=== PATIENT | female | born 1935 | race Two or more races ===

== ENCOUNTER 2016-09-30 17:46 | Inpatient (IN) | payer MEDICARE, MEDICAID ==
[2016-09-30 18:06] VITALS: BP 140/72
[2016-09-30 18:35] LABS: % BASOPHILS 0.6 % (0.0-2.0); % EOSINOPHILS 1.7 % (0.0-5.0); % LYMPHOCYTES 22.5 % (20.0-50.0); % MONOCYTES 7.3 % (2.0-10.0); % NEUTROPHILS 67.9 % (40.0-80.0); MEAN CELL VOLUME 84.7 fl (81-100); MEAN CORPUSCULAR HEMOGLOBIN 29.3 pg (27.0-31.0); MEAN CORPUSCULAR HGB CONC 34.6 pg (28.0-36.0); MEAN PLATELET VOLUME 7.8 fl; NEUTROPHILE ABSOLUTE 4.4 Th/cmm (1.8-8.0); PLATELET COUNT 172 Th/cmm (150-400); RED BLOOD COUNT 3.76 Mil/cmm (3.80-5.20); RED CELL DISTRIBUTION WIDTH 14.2 % (11.5-20.0)
[2016-09-30 18:38] LABS: HEMATOCRIT 31.9 % (35.0-45.0); WHITE BLOOD COUNT 6.4 Th/cmm (4.8-10.8)
[2016-09-30 18:52] LABS: INR 1.02 (0.5-1.4); PROTHROMBIN TIME (TEST) 10.6 SECONDS (9.5-11.5)
[2016-09-30 18:53] LABS: CHOLESTEROL 128 mg/dL (<200); TRIGLYCERIDES 55 mg/dL (<150)
[2016-09-30 19:05] LABS: ALB/GLOB RATIO 1.2 (1.0-1.8); ALKALINE PHOSPHATASE 86 U/L (34-104); ANION GAP 10.5 (7.0-16.0); BILIRUBIN,TOTAL 0.3 mg/dL (0.3-1.0); BUN - UREA NITROGEN 40 mg/dL (7-25); BUN/CREATININE RATIO 44.4; CALCIUM SERUM 9.8 mg/dL (8.6-10.3); CARBON DIOXIDE 26.2 mEq/L (21.0-31.0); CHLORIDE 108 mEq/L (98-107); CREATININE - SERUM 0.9 mg/dL (0.6-1.2); GLUCOSE 208 mg/dL (70-105); POTASSIUM SERUM 3.7 mEq/L (3.5-5.1); SGOT 30 U/L (13-39); SGPT/ALT 11 U/L (7-52); SODIUM SERUM 141 mEq/L (136-145)
--- NOTE | 2016-09-30 19:14 | ED Physician Chart ---
Chief Complaint/HPI - Patient Information Date Seen:: 09/30/16 Time Seen:: 18:10 Chief Complaint:: PSYCH DISORDER History of Present Illness:: THIS IS AN 81 YO FEMALE PATIENT SENT FROM THE CUSTODIAL FOR EVALUATION AND TREATMENT OF HER AGITATION. SHE HAS CAD, COPD, DIABETES MELLITUS, HYPERTENSION , GERD, SCHIZOPHERNIA. Allergies:: Allergies Allergy/AdvReac Type Severity Reaction Status Date / Time No Known Drug Allergies Allergy Verified 03/14/16 22:17 Vitals:: Vital Signs - 8 hr 09/30/16 18:06 Temp 98.1 F HR 98 RR 18 BP 140/72 Historian:: Medical Records Review:: Nurse's Note Reviewed Review of Systems - Review of Systems General/Constitutional: No fever, No chills, No weight loss, No weakness, No diaphoresis, No edema, No loss of appetite Skin: No skin lesions, No rash, No bruising Head: No headache, No light-headedness Eyes: No loss of vision, No pain, No diplopia ENT: No earache, No nasal drainage, No sore throat, No tinnitus Neck: No neck pain, No swelling, No thyromegaly, No stiffness, No mass noted Cardio Vascular: No chest pain, No palpitations, No PND, No orthopnea, No edema Pulmonary: No SOB, No cough, No sputum, No wheezing GI: No nausea, No vomiting, No diarrhea, No pain, No melena, No hematochezia, No constipation, No hematemesis G/U: No dysuria, No frequency, No hematuria Musculoskeletal: No bone or joint pain, No back pain, No muscle pain Endocrine: No polyuria, No polydipsia Psychiatric: Prior psych history, Depression, No anxiety, No suicidal ideation Hematopoietic: No bruising, No lymphadenopathy Allergic/Immuno: No urticaria, No angioedema Neurological: No syncope, No focal symptoms, No weakness, No paresthesia, No headache, No seizure, No dizziness, No confusion, No vertigo Past Medical History - Past Medical History Obtainable: Yes Past Medical History: HTN, DM, CAD, Asthma/COPD, Arthritis, Dementia Family Medical History - Family Member Mother History Unknown: Yes Ethnicity: Unknown Living Status: Unknown Hx Family Cancer: (unknown) Hx Family Coronary Artery Disease: (unknown) Hx Family Congestive Heart Failure: (unknown) Hx Family Hypertension: (unknown) Hx Family Stroke: (unknown) Hx Family Diabetes: (unknown) Hx Family Seizures: (unknown) Hx Family Dementia: (unknown) Hx Family AIDS: (unknown) Hx Family HIV: No Hx Family COPD: (unknown) Hx Family Hepatitis: (unknown) Hx Family Psychiatric Problems: (unknown) Hx Family Tuberculosis: (unknown) Father History Unknown: Yes Ethnicity: Unknown Living Status: Unknown Hx Family Cancer: (unknown) Hx Family Coronary Artery Disease: (unknown) Hx Family Congestive Heart Failure: (unknown) Hx Family Hypertension: (unknown) Hx Family Stroke: (unknown) Hx Family Diabetes: (unknown) Hx Family Seizures: (unknown) Hx Family Dementia: (unknown) Hx Family AIDS: (unknown) Hx Family COPD: (unknown) Hx Family Hepatitis: (unknown) Hx Family Psychiatric Problems: (unknown) Hx Family Tuberculosis: (unknown) Physical Exam - Physical Examination General/Constitutional: Awake, Well-developed, well-nourished, Alert, No distress, GCS 15, Non-toxic appearing, Ambulatory Head: Atraumatic Eyes: Lids, conjuctiva normal, PERRL, EOMI Skin: Nl inspection, No rash, No skin lesions, No ecchymosis, Well hydrated, No lymphadenopathy ENMT: External ears, nose nl, Nasal exam nl, Lips, teeth, gums nl Neck: Nontender, Full ROM w/o pain, No JVD, No nuchal rigidity, No bruit, No mass, No stridor Respiratory: Nl effort/Exclusion, Clear to Auscultation, No Wheeze/Rhonchi/Rales Cardio Vascular: RRR, No murmur, gallop, rubs, NL S1 S2 GI: No tenderness/rebounding/guarding, No organomegaly, No hernia, Normal BS's, Nondistended, No mass/bruits, No McBurney tenderness : No CVA tenderness Extremities: No tenderness or effusion, Full ROM, normal strength in all extremities, No edema, Normal digits & nails Neuro/Psych: Alert/oriented, DTR's symmetric, Normal sensory exam, Normal motor strength, Judgement/insight normal, Mood normal (DEPRESSED MOOD), Normal gait, No focal deficits Misc: normal gait, Normal back, No paraspinal tenderness Labs/Radiology/EKG Results - Lab Results Results: Laboratory Tests 03/09/30/16 09/30/16 18:25 18:25 18:25 WBC 6.4 D RBC 3.76 L Hgb 11.0 L Hct 31.9 L D MCV 84.7 MCH 29.3 MCHC Differential 34.6 RDW 14.2 Plt Count 172 MPV 7.8 Neutrophils % 67.9 Lymphocytes % 22.5 Monocytes % 7.3 Eosinophils % 1.7 Basophils % 0.6 PT 10.6 INR 1.02 PTT (Actin FS) 25.4 L Troponin I Triglycerides 55 Cholesterol 128 LDL Cholesterol Direct 63 L HDL Cholesterol 54 09/30/16 18:25 WBC RBC Hgb Hct MCV MCH MCHC Differential RDW Plt Count MPV Neutrophils % Lymphocytes % Monocytes % Eosinophils % Basophils % PT INR PTT (Actin FS) Troponin I 0.01 Triglycerides Cholesterol LDL Cholesterol Direct HDL Cholesterol ED Septic Shock - . Is Septic Shock (SBP<90, OR Lactate>4 mmol\L) present?: No - <6hrs of presentation: Vital Signs: Vital Signs - 8 hr 09/30/16 18:06 Temp 98.1 F HR 98 RR 18 BP 140/72 Reassessment (Disposition) - Reassessment Reassessment Condition:: Unchanged - Diagnosis Diagnosis:: AGITATION DIABETES MELLITUS COPD GERD - Patient Disposition Discharge/Transfer:: Acute Care w/in this hosp Admitting Medical Physician:: Eugene Reid Admitting Psych Physician:: Joan Braswell Condition at Disposition:: Unchanged ED Discharge Plan - Patient Disposition Admit/Discharge/Transfer: PT DISCHARGED HOME Condition at Disposition: Unchanged Instructions: Psychosis
[2016-09-30] MEDS ORDERED: Fleet Enema 135 mL RC PRN (22:12)
[2016-09-30] MEDS ORDERED: Hydrocodone/APAP 5mg/325mg Tab PO PRN (22:12)
[2016-09-30] MEDS ORDERED: Maalox 30 mL Cup PO PRN (22:12)
[2016-10-01] MEDS ORDERED: Hydrocodone/APAP 5mg/325mg Tab PO PRN (03:38)
[2016-10-01] MEDS: INSULIN ASPART SLIDING SCALE 100 UNITS/ML UNIT SUBQ SCH ×4 (06:39→20:26)
[2016-10-01] MEDS: Pantoprazole 40 mg EC Tab PO SCH (06:46)
[2016-10-01] MEDS: Multivitamin Tab PO SCH (08:35)
[2016-10-01] MEDS ORDERED: AMOXICILLIN 500 MG PO SCH (09:00)
[2016-10-01] MEDS ORDERED: Haloperidol Lactate 5 mg/mL 1mL Vial ONE (12:08)
[2016-10-01] MEDS ORDERED: Haloperidol Lactate 5 mg/mL 1mL Vial IM ONE (12:15)
[2016-10-01] MEDS: GLUCAGON HCl 1 MG KIT IM PRN ×2 (13:12→18:46)
--- NOTE | 2016-10-01 22:42 | Psychosocial Evaluation ---
IDENTIFYING DATA: The patient is an 81-year-old woman, resident of [facility]. Information was obtained by directly interviewing the patient as well as reviewing the admission papers and they are reliable. JUSTIFICATION FOR HOSPITALIZATION: The patient is admitted here on a voluntary basis in view of her acute psychosis. CHIEF COMPLAINT: "I don't care, don't bother me." HISTORY OF PRESENT ILLNESS: This is one of multiple psychiatric hospitalizations for this patient who was last hospitalized here in February. The patient has been diagnosed to have psychosis and the patient has been refusing to comply with the treatment, screaming and yelling constantly. The patient has been diagnosed to have schizophrenia, chronic paranoid type and has been maintained on Haldol, which was recently switched over to Seroquel, but the patient at this time is only on Depakote. The patient is refusing to comply with the treatment and even that the blood sugar was low, the patient has been refusing to have a little bit of orange juice. PAST PSYCHIATRIC HISTORY: Please refer to the above medical history. PHYSICAL EXAMINATION: Requested to be done by Dr. Reid. SUBSTANCE ABUSE HISTORY: None. PHYSICAL OR SEXUAL ABUSE HISTORY: None. SOCIAL HISTORY: The patient is a resident of the penitentiary facility, [facility]. MENTAL STATUS EXAMINATION: The patient is 81 years old, superficially cooperative. Eye contact is poor. Mood is noted to be irritable. Affect is constricted. Coping skills are noted to be extremely poor. The patient is screaming and yelling. The patient has no insight into her illness. The patient has been having major problem with her behavior at this time. The patient is grossly psychotic. The patient is not able to contract for safety. DIAGNOSES AT THE TIME OF ADMISSION: AXIS I: Schizophrenia, chronic paranoid type, with acute exacerbation. AXIS II: None. AXIS III: As per Dr. Reid. IMMEDIATE TREATMENT PLAN: to the Depakote that she is getting. The patient is possibly placed on Haldol. ESTIMATED LENGTH OF STAY: 3-5 days. DISCHARGE CRITERIA: When she no longer a threat to self or others and be able to cope up with the stress. JOB# [id number]
--- NOTE | 2016-10-01 23:16 | Consultation ---
HISTORY OF PRESENT ILLNESS: The patient is an 81-year-old female known to me, me being the primary care physician. PAST MEDICAL HISTORY: Significant diabetes mellitus; diabetic angiopathy, neuropathy and nephropathy; hypertension, coronary artery disease, peptic ulcer disease, gastritis, arthritis, osteoporosis, spinal stenosis. SOCIAL HISTORY: No history of smoking, alcohol abuse. OBSTETRIC HISTORY: ____. Menses, postmenopausal. REVIEW OF SYSTEMS: Very psychotic. No vomiting, no diarrhea, no melena, no hematochezia. PHYSICAL EXAMINATION: GENERAL: Elderly female in no obvious respiratory distress. VITAL SIGNS: Include blood pressure 140/80, heart rate 80, respiration rate of 18. SKIN: Shows no obvious cellulitis. HEENT: Normal conjunctivae. NECK: Supple. LUNGS: Clear. CARDIOVASCULAR: First and second heart sound present. ABDOMEN: Soft. Minimal epigastric tenderness. Bowel sounds present and good. EXTREMITIES: Show arthritis. NEUROLOGIC: The patient is very psychotic. LABORATORY DATA: Labs include white count of 6.4, hemoglobin 11, hematocrit 31.9, platelet count of 172. Sodium 141, potassium 3.7, chloride 108, bicarb 26.2, BUN 40, creatinine of 0.9. MEDICAL DIAGNOSES: Include diabetes mellitus; diabetic angiopathy, neuropathy and nephropathy; hypertension, coronary artery disease, spinal stenosis, peptic ulcer disease, gastritis, arthritis, osteoporosis, anemia and chronic kidney disease. PLAN: The patient is on [place], Amaryl, sliding scale; Xalatan. Rest of medicine as per psychiatrist. Thank you, Dr. Braswell, for letting me to see your patient. JOB# [id number]
[2016-10-02] MEDS: INSULIN ASPART SLIDING SCALE 100 UNITS/ML UNIT SUBQ SCH ×4 (06:43→20:33)
[2016-10-02] MEDS: Pantoprazole 40 mg EC Tab PO SCH (06:43)
[2016-10-02] MEDS: Multivitamin Tab PO SCH (08:33)
[2016-10-02] MEDS ORDERED: Magnesium Hydroxide (MOM) 30 mL UDC PO PRN (12:59)
--- NOTE | 2016-10-02 23:49 | Progress Notes ---
PSYCHIATRIC PROGRESS NOTE TIME PATIENT SEEN: 8:30 a.m. SUBJECTIVE: Staff was spoken to. The patient is interviewed. Mood is noted to be irritable. Affect is constricted. The patient is screaming and yelling. The patient has no insight into her illness. The patient is very paranoid and is stating that she does not need any help. She does not need any other medication. She wants to be left alone. The patient has no insight and the patient continues to be in major behavioral problems. ASSESSMENT: The patient is still grossly psychotic. PLAN: To continue the patient with supportive therapy and followup. JOB# [id number]
[2016-10-03] MEDS: Pantoprazole 40 mg EC Tab PO SCH (06:44)
[2016-10-03] MEDS: INSULIN ASPART SLIDING SCALE 100 UNITS/ML UNIT SUBQ SCH ×4 (06:54→20:21)
[2016-10-03] MEDS: Multivitamin Tab PO SCH (08:41)
--- NOTE | 2016-10-03 11:48 | Diagnostic Imaging Report ---
Portable chest x-ray HISTORY: Shortness of breath The heart size is difficult to assess with portable technique in a poor inspiration, but appears generous. Atherosclerotic calcification seen in the aorta. No acute focal pulmonary processes. IMPRESSION: 1. No acute pulmonary processes 2. Cardiomegaly with atherosclerotic vascular changes
--- NOTE | 2016-10-04 01:02 | Progress Notes ---
TIME PATIENT SEEN: 09:45 a.m. SUBJECTIVE: Staff was spoken to. The patient is interviewed. Mood is noted to be irritable. Affect is constricted. The patient has paranoid delusions. Coping skills are noted to be poor. The patient is screaming and yelling. ASSESSMENT: The patient is still grossly psychotic. PLAN: To continue the patient with the supportive therapy and followup. [facility]# [id number]
[2016-10-04] MEDS: INSULIN ASPART SLIDING SCALE 100 UNITS/ML UNIT SUBQ SCH ×4 (06:33→20:54)
[2016-10-04] MEDS: Pantoprazole 40 mg EC Tab PO SCH (06:34)
[2016-10-04] MEDS: Multivitamin Tab PO SCH (08:42)
--- NOTE | 2016-10-04 22:26 | Progress Notes ---
PSYCHIATRIC PROGRESS NOTE TIME PATIENT SEEN: 5:30 p.m. SUBJECTIVE: Staff was spoken to. The patient is interviewed. Mood is noted to be irritable. Affect is constricted. The patient is screaming and yelling. The patient has no insight into her illness. The patient is stating that she is going to be raped and then she needs to be careful. ASSESSMENT: The patient is grossly psychotic. PLAN: To use the Haldol, Ativan, and Benadryl to continue the patient's agitated and aggressive behavior. JOB# [id number]
[2016-10-05] MEDS: INSULIN ASPART SLIDING SCALE 100 UNITS/ML UNIT SUBQ SCH ×4 (06:37→20:16)
[2016-10-05] MEDS: Pantoprazole 40 mg EC Tab PO SCH (06:38)
[2016-10-05] MEDS: Multivitamin Tab PO SCH (08:14)
--- NOTE | 2016-10-05 23:43 | Progress Notes ---
TIME PATIENT SEEN: 5:15 p.m. SUBJECTIVE: Staff was spoken to. The patient is interviewed. Mood is noted to be irritable. Affect is constricted. The patient is screaming and yelling and she is stating that someone is going to be raping her. The patient has no insight into her illness. ASSESSMENT: The patient is still grossly psychotic and impulsive. PLAN: To continue the patient with the current medications and give the patient Haldol, Benadryl, and Ativan as needed. [facility]# [id number]
[2016-10-06] MEDS: Pantoprazole 40 mg EC Tab PO SCH (06:51)
[2016-10-06] MEDS: INSULIN ASPART SLIDING SCALE 100 UNITS/ML UNIT SUBQ SCH ×4 (07:01→21:00)
[2016-10-06] MEDS: Multivitamin Tab PO SCH (08:24)
--- NOTE | 2016-10-07 01:01 | Progress Notes ---
TIME PATIENT SEEN: 11:00 a.m. SUBJECTIVE: Staff was spoken to. The patient is interviewed. Mood is noted to be irritable. Affect is constricted. Coping skills are noted to be poor. The patient is still very paranoid. The patient has no insight into her illness. The patient is screaming and yelling at this time. ASSESSMENT: The patient is still grossly psychotic. PLAN: To continue the patient with the supportive therapy. I encouraged the patient to verbalize the concerns rather than to act out. [facility]# [id number]
[2016-10-07] MEDS: Pantoprazole 40 mg EC Tab PO SCH (06:40)
[2016-10-07] MEDS: INSULIN ASPART SLIDING SCALE 100 UNITS/ML UNIT SUBQ SCH ×4 (06:54→20:53)
[2016-10-07] MEDS: Multivitamin Tab PO SCH (09:53)
--- NOTE | 2016-10-08 04:39 | Progress Notes ---
TIME PATIENT SEEN: 9:35 a.m. SUBJECTIVE: Staff was spoken to. The patient is interviewed. Mood is noted to be irritable. Affect is constricted. The patient is screaming and yelling. The patient is stating that she is going to be raped and has been anxious. Tends to scream and yell.she has no insight into her illness. The patient is grossly psychotic. ASSESSMENT: The patient is still paranoid. PLAN: To continue the patient with the Tylenol and gradually increase the dose. Plan to encourage the patient to verbalize the concerns rather than to act out. JOB# [id number] RANDI
[2016-10-08] MEDS: Pantoprazole 40 mg EC Tab PO SCH (06:32)
[2016-10-08] MEDS: INSULIN ASPART SLIDING SCALE 100 UNITS/ML UNIT SUBQ SCH ×4 (06:38→20:33)
[2016-10-08] MEDS: Multivitamin Tab PO SCH (10:03)
[2016-10-08] MEDS ORDERED: Hydrocodone/APAP 5mg/325mg Tab PO PRN (16:26)
--- NOTE | 2016-10-08 21:51 | Progress Notes ---
TIME PATIENT SEEN: 08:00 a.m. SUBJECTIVE: Staff was spoken to. The patient is interviewed. Mood is noted to be irritable. Affect is constricted. The patient has paranoid delusions. After the couple of shots of Haldol, the patient has been able to apologize to the staff members for calling all thee sexualized names. The patient has been able to calm down with Haldol. The patient is going to be considered for Haldol Decanoate if the patient is willing to comply with the request. So far no side effects to the medications are noted. ASSESSMENT: The patient is still psychotic. PLAN: To continue the patient with the current medications and followup. JOB# [id number]
[2016-10-09] MEDS: INSULIN ASPART SLIDING SCALE 100 UNITS/ML UNIT SUBQ SCH ×4 (06:42→20:17)
[2016-10-09] MEDS: Pantoprazole 40 mg EC Tab PO SCH (06:42)
[2016-10-09] MEDS: Multivitamin Tab PO SCH (08:44)
--- NOTE | 2016-10-10 00:02 | Progress Notes ---
PSYCHIATRIC PROGRESS NOTE TIME PATIENT SEEN: 08:00 a.m. SUBJECTIVE: Staff was spoken to. The patient is interviewed. Mood is noted to be irritable. Affect is constricted. Insight and judgment at this time are noted to be still impaired. Paranoia and delusions are noted. The patient seems to be responding to the Haldol. No side effects to the medications are noted at this time; however, the patient has been offered to go with the Haldol Decanoate, but the patient has been refusing stating that the pills are okay. ASSESSMENT: The patient is still psychotic, but the aggressive behaviors seems to be ____ down at this time. PLAN: To continue the patient with supportive therapy and follow up. [facility]# [id number]
[2016-10-10] MEDS: INSULIN ASPART SLIDING SCALE 100 UNITS/ML UNIT SUBQ SCH ×3 (06:32→16:41)
[2016-10-10] MEDS: Pantoprazole 40 mg EC Tab PO SCH (06:36)
[2016-10-10] MEDS: Multivitamin Tab PO SCH (08:58)
--- NOTE | 2016-10-24 00:36 | Discharge Summary ---
IDENTIFYING DATA: The patient is an 81-year-old woman, resident of [facility]. Information obtained by interviewing the patient as well as reviewing the admission papers. JUSTIFICATION FOR HOSPITALIZATION: The patient is admitted for acute psychosis. CHIEF COMPLAINT: "I don't care, don't bother me." DIAGNOSIS AT THE TIME OF THE ADMISSION: AXIS I: Schizophrenia, chronic paranoid type with acute exacerbation. SECONDARY DIAGNOSIS: None. MEDICAL DIAGNOSES: Significant for the patient having diabetes mellitus, hypertension, coronary artery disease, spinal stenosis, and peptic ulcer disease. Physical examination was done by Dr. Reid. Lab studies done at the time of the hospitalization have been reviewed by Dr. Reid and no major intervention was needed. HOSPITAL COURSE AND RESPONSE TO TREATMENT: The patient has been verbally abusive, very agitated ____. The patient has to be continued on the Depakote 500 mg b.i.d., and the patient has been given the haloperidol. The patient has been encouraged to participate in the groups and verbalize the concerns. Haldol was given 1 mg b.i.d. With these interventions, the patient started to do fairly well. No major behavioral problems are noted. The patient has been able to calm down and hence the patient was finally discharged on 10/10/2016 with the recommendation that she is going to be followed up by ____ and Dr. Reid on an outpatient basis at [facility]. MENTAL STATUS EXAMINATION: At the time of discharge noted to be stable. DIAGNOSES AT THE TIME OF DISCHARGE: AXIS I: Schizophrenia, chronic paranoid type. AXIS II: None. AXIS III: Diabetes mellitus, hypertension, arthritis, gastritis. AFTERCARE PLAN: The patient is discharged to the [place] for further followup. JOB# [id number]
== END 2016-10-10 17:25 | DRG 885 ==
LOC: ER 17:46 → GERO 19:30
PROVIDERS: ADMIT Psychiatry & Neurology Psychiatry; ATTEND Psychiatry & Neurology Psychiatry
DX: F20.0 Paranoid schizophrenia (principal); F03.90 Unspecified dementia, unspecified severity, without behavioral disturbance, psychotic disturbance, mood disturbance, and anxiety; E11.21 Type 2 diabetes mellitus with diabetic nephropathy; N39.0 Urinary tract infection, site not specified; F29 Unspecified psychosis not due to a substance or known physiological condition; I25.10 Atherosclerotic heart disease of native coronary artery without angina pectoris; J44.9 Chronic obstructive pulmonary disease, unspecified; K21.9 Gastro-esophageal reflux disease without esophagitis; M19.90 Unspecified osteoarthritis, unspecified site; E11.51 Type 2 diabetes mellitus with diabetic peripheral angiopathy without gangrene; E11.40 Type 2 diabetes mellitus with diabetic neuropathy, unspecified; K27.9 Peptic ulcer, site unspecified, unspecified as acute or chronic, without hemorrhage or perforation; M81.0 Age-related osteoporosis without current pathological fracture; M48.00 Spinal stenosis, site unspecified; D64.9 Anemia, unspecified; I12.9 Hypertensive chronic kidney disease with stage 1 through stage 4 chronic kidney disease, or unspecified chronic kidney disease; K29.70 Gastritis, unspecified, without bleeding; N18.3 Chronic kidney disease, stage 3 (moderate); H40.9 Unspecified glaucoma; E11.649 Type 2 diabetes mellitus with hypoglycemia without coma
CPT/HCPCS: 36415-UA; 71010-TC; 80053-TC; 80061-TC; 82947-TC; 82948-90; 83036-90; 84443-TC; 84484-TC; 85025-TC; 85610-TC; 85730-TC; 93005; J1200; J1610; J1630; J1815; Z7610